=== PATIENT | male | born 1960 | race Caucasian/White ===

== ENCOUNTER → 2018-09-02 | Outpatient (CLI) | payer OTHER | END | disposition home or self-care (01) | LOC: CFH 10:13 | PROVIDERS: ATTEND Nurse Practitioner Family | DX: K57.90 Diverticulosis of intestine, part unspecified, without perforation or abscess without bleeding (principal); M51.36 Other intervertebral disc degeneration, lumbar region; M51.37 Other intervertebral disc degeneration, lumbosacral region; N28.89 Other specified disorders of kidney and ureter; R31.0 Gross hematuria | CPT/HCPCS: 74176 ==

== ENCOUNTER → 2018-10-30 | Outpatient (CLI) | payer OTHER ==
[~2018-10-30] MED LIST: ASPI-496 PO; ATOR40TA78 PO; B CO1TAB14 PO; GLUC1TAB27 PO; LISI-167 PO; OMEG1CAP30 PO; PROSTATE PLUS PO
[2018-10-30 10:15] LABS: BASOPHILS # (AUTO) 0.02 x10^3/uL (0-0.1); BASOPHILS % (AUTO) 0 % (0-1); EOSINOPHILS # (AUTO) 0.07 x10^3/uL (0-0.4); EOSINOPHILS % (AUTO) 1 % (1-7); LYMPHOCYTES # (AUTO) 1.54 x10^3/uL (1-3.4); LYMPHOCYTES % (AUTO) 23 % (22-44); MD NO; MEAN CORPUSCULAR HEMOGLOBIN 30.5 pg (27.5-34.5); MEAN CORPUSCULAR HGB CONC 33.7 g/dL (33.2-36.2); MEAN CORPUSCULAR VOLUME 90.5 fL (81-97); MEAN PLATELET VOLUME 10.1 fL (7.4-10.4); MONOCYTES % (AUTO) 6 % (2-9); NEUTROPHILS # (AUTO) 4.73 x10^3/uL (1.8-6.8); NEUTROPHILS % (AUTO) 70 % (42-75); PLATELET COUNT 277 x10^3/uL (130-400); RED BLOOD COUNT 4.66 x10^6/uL (4.38-5.82); RED CELL DISTRIBUTION WIDTH 13.1 % (9.4-14.8)
[2018-10-30 10:22] LABS: ALBUMIN 4.2 g/dL (3.4-5.0); ANION GAP 5 mmol/L (5-15); CALCIUM 9.3 mg/dL (8.5-10.1); CHLORIDE 110 mmol/L (98-107)
[2018-10-30 10:23] LABS: MICROSCOPIC AUTO
[2018-10-30 10:26] LABS: ALANINE AMINOTRANSFERASE 36 U/L (12-78); ALKALINE PHOSPHATASE 84 U/L (45-117); BILIRUBIN,TOTAL 0.3 mg/dL (0.2-1.0); CREATININE 1.01 mg/dL (0.7-1.3); TOTAL PROTEIN 7.7 g/dL (6.4-8.2)
== END | disposition home or self-care (01) ==
LOC: STAR 09:11
PROVIDERS: ATTEND Urology
DX: Z01.818 Encounter for other preprocedural examination (principal); R31.0 Gross hematuria; N28.89 Other specified disorders of kidney and ureter
CPT/HCPCS: 36415; 80053; 81001; 85025; 87086; 93005

== ENCOUNTER 2018-11-11 05:44 | Inpatient (IN) | payer OTHER ==
[~2018-11-11] VITALS: Ht 188 cm; Wt 104.8 kg
[2018-11-11] MEDS ORDERED: LACTATED RINGERS 1,000 ML IV SCH (06:53)
[2018-11-11] MEDS ORDERED: GABAPENTIN 300 MG CAPSULE PO STA (07:11)
[2018-11-11] MEDS ORDERED: ACETAMINOPHEN 500 MG TABLET PO STA (07:11)
[2018-11-11] MEDS ORDERED: EPINEPHRINE 1 MG/ML, 1ML ONE (07:20)
[2018-11-11] MEDS ORDERED: THROMBIN 5,000 UNIT VIAL TP ONE (07:20)
[2018-11-11] MEDS ORDERED: MICROFIBRILLAR COLLAGEN 1 GM TP ONE (07:20)
[2018-11-11] MEDS ORDERED: BUPIVACAINE/PF 0.25% ONE (07:20)
[2018-11-11] MEDS ORDERED: FENTANYL PF 250 MCG/5ML ONE (07:29)
[2018-11-11] MEDS ORDERED: MIDAZOLAM 1 MG/ML, 2ML ONE (07:29)
[2018-11-11] MEDS ORDERED: PROMETHAZINE 25 MG/ML, 1ML IV PRN (07:30)
[2018-11-11] MEDS ORDERED: OXYcodone 5 MG/5 ML ORAL.SOL UDC PO PRN (07:30)
[2018-11-11] MEDS ORDERED: METOPROLOL 1 MG/ML, 5ML IV PRN (07:30)
[2018-11-11] MEDS ORDERED: FENTANYL PF 100 MCG/2ML IV PRN (07:30)
[2018-11-11] MEDS ORDERED: HALOPERIDOL 5 MG/ML IV PRN ×2 (07:30)
[2018-11-11] MEDS ORDERED: PROCHLORPERAZINE 5 MG/ML, 2ML IV PRN (07:30)
[2018-11-11] MEDS ORDERED: MEPERIDINE/PF 25MG/0.5ML IVPush PRN (07:30)
[2018-11-11] MEDS ORDERED: DIPHENHYDRAMINE 50 MG/ML, 1ML IVPush PRN (07:30)
[2018-11-11] MEDS ORDERED: HYDROmorphone 2 MG/ML, 1ML IVPush PRN (07:30)
[2018-11-11] MEDS ORDERED: LABETALOL 5MG/ML, 20ML IV PRN (07:30)
[2018-11-11] MEDS ORDERED: hydrALAzine 20 MG/ML, 1ML IV PRN (07:30)
[2018-11-11] MEDS ORDERED: GLYCOPYRROLATE 0.2MG/1ML, 5ML ONE (10:04)
[2018-11-11] MEDS ORDERED: ROCURONIUM 10MG/ML,5ML ONE (10:04)
[2018-11-11] MEDS ORDERED: CEFAZOLIN 1,000 MG ONE (10:04)
[2018-11-11] MEDS ORDERED: ONDANSETRON 2MG/ML, 2ML ONE (10:04)
[2018-11-11] MEDS ORDERED: SUCCINYLCHOLINE 20 MG/ML, 10ML ONE (10:04)
[2018-11-11] MEDS ORDERED: DEXAMETHASONE 4 MG/ML, 1ML ONE (10:04)
[2018-11-11] MEDS ORDERED: NEOSTIGMINE 1 MG/ML, 10ML ONE (10:04)
[2018-11-11] MEDS ORDERED: PROPOFOL 10 MG/ML, 20ML ONE (10:04)
[2018-11-11] MEDS ORDERED: FENTANYL PF 100 MCG/2ML ONE ×2 (10:41→11:29)
[2018-11-11] MEDS ORDERED: OXYcodone 5 MG/5 ML ORAL.SOL UDC ONE (11:29)
[2018-11-11 13:23] VITALS: BP 128/74
[2018-11-11] MEDS ORDERED: TEMAZEPAM 15 MG CAPSULE PO PRN (13:30)
[2018-11-11] MEDS ORDERED: OPIUM/BELLADONNA SUPP.RECT 16.2-30 MG PR PRN (13:30)
[2018-11-11] MEDS ORDERED: morphine SULFATE 10 MG/ML, 1ML IV PRN (13:30)
[2018-11-11] MEDS ORDERED: ONDANSETRON 2MG/ML, 2ML IV PRN (13:30)
[2018-11-11] MEDS: D5%-0.45NACL+KCL 20MEQ 1,000 ML IV SCH ×2 (15:17→22:51)
[2018-11-11] MEDS: CEFAZOLIN PMX 1GM/50ML 50 ML IVPB SCH (16:56)
[2018-11-11 18:55] VITALS: BP 103/72
[2018-11-11] MEDS: ATORVASTATIN 40 MG TABLET PO SCH (20:39)
[2018-11-12 00:15] VITALS: BP 120/65
[2018-11-12] MEDS: CEFAZOLIN PMX 1GM/50ML 50 ML IVPB SCH (00:43)
[2018-11-12 04:01] VITALS: BP 111/60
[2018-11-12 05:22] LABS: CHLORIDE 106 mmol/L (98-107)
[2018-11-12 05:26] LABS: ANION GAP 6 mmol/L (5-15); CALCIUM 8.5 mg/dL (8.5-10.1); CREATININE 1.45 mg/dL (0.7-1.3)
[2018-11-12] MEDS: D5%-0.45NACL+KCL 20MEQ 1,000 ML IV SCH ×3 (06:13→23:00)
[2018-11-12] MEDS: ENOXAPARIN 40 MG/0.4 ML SQ SCH (06:13)
[2018-11-12 09:35] VITALS: BP 109/66
[2018-11-12] MEDS: LISINOPRIL 10 MG TABLET PO SCH ×2 (10:10→21:00)
[2018-11-12] MEDS: HYDROcodone/APAP 5/325 TABLET PO PRN ×3 (10:29→22:04)
[2018-11-12 14:18] VITALS: BP 127/78
[2018-11-12 19:15] VITALS: BP 129/74
[2018-11-12] MEDS: ATORVASTATIN 40 MG TABLET PO SCH (22:04)
[2018-11-13 01:25] VITALS: BP 144/77
[2018-11-13 05:28] LABS: BASOPHILS # (AUTO) 0.05 x10^3/uL (0-0.1); BASOPHILS % (AUTO) 1 % (0-1); EOSINOPHILS # (AUTO) 0.08 x10^3/uL (0-0.4); EOSINOPHILS % (AUTO) 1 % (1-7); LYMPHOCYTES % (AUTO) 20 % (22-44); MD NO; MEAN CORPUSCULAR HEMOGLOBIN 30.5 pg (27.5-34.5); MEAN CORPUSCULAR HGB CONC 33.4 g/dL (33.2-36.2); MEAN CORPUSCULAR VOLUME 91.3 fL (81-97); MEAN PLATELET VOLUME 9.8 fL (7.4-10.4); MONOCYTES # (AUTO) 0.61 x10^3/uL (0.2-0.8); MONOCYTES % (AUTO) 7 % (2-9); NEUTROPHILS # (AUTO) 6.32 x10^3/uL (1.8-6.8); NEUTROPHILS % (AUTO) 71 % (42-75); PLATELET COUNT 256 x10^3/uL (130-400); RED CELL DISTRIBUTION WIDTH 13.4 % (9.4-14.8)
[2018-11-13 05:37] LABS: CHLORIDE 108 mmol/L (98-107)
[2018-11-13 05:48] LABS: ALANINE AMINOTRANSFERASE 19 U/L (12-78); ALBUMIN 3.6 g/dL (3.4-5.0); ALKALINE PHOSPHATASE 66 U/L (45-117); ANION GAP 5 mmol/L (5-15); BILIRUBIN,TOTAL 0.7 mg/dL (0.2-1.0); CALCIUM 9.1 mg/dL (8.5-10.1); CREATININE 1.33 mg/dL (0.7-1.3); TOTAL PROTEIN 7.2 g/dL (6.4-8.2)
[2018-11-13] MEDS: D5%-0.45NACL+KCL 20MEQ 1,000 ML IV SCH (05:55)
[2018-11-13] MEDS: ENOXAPARIN 40 MG/0.4 ML SQ SCH (06:21)
[2018-11-13 06:31] VITALS: BP 116/75
[2018-11-13] MEDS: LISINOPRIL 10 MG TABLET PO SCH (08:13)
[2018-11-13] MEDS ORDERED: HYDR-3240 PO (11:40)
[2018-11-13] MEDS ORDERED: DOCU-131 PO (11:40)
== END 2018-11-13 11:50 | disposition home or self-care (01) | DRG 660 ==
LOC: OUT 05:44 → 4NOR 12:20 → OUT 13:26 → DCLOUNGE 11-13 11:47
PROVIDERS: ADMIT Urology; ATTEND Urology
PROC: 8E0W4CZ Robotic Assisted Procedure of Trunk Region, Percutaneous Endoscopic Approach (ICD-10-PCS; 2018-11-11)
PROC: 0TT14ZZ Resection of Left Kidney, Percutaneous Endoscopic Approach (ICD-10-PCS; principal; 2018-11-11 07:30)
DX: N28.89 Other specified disorders of kidney and ureter (principal); K56.7 Ileus, unspecified; I10 Essential (primary) hypertension; E78.5 Hyperlipidemia, unspecified
CPT/HCPCS: 36415; 80048; 80053; 85014; 85018; 85025; 86850; 86900; 88307; G0378; J0171; J0690; J1100; J1650; J2250; J2405; J2704; J2710; J3010; J3490; C1760; J0330; J3480; J7120